=== PATIENT | male | born 1955 ===

== ENCOUNTER 2017-12-09 14:43 | Day surgery (SDC) | payer BC ==
[~2017-12-09] VITALS: Ht 182.9 cm; Wt 100.7 kg
[~2017-12-09 14:43] MED LIST: ASPI325EC PO; ATEN50 PO; FISH OIL 1,0001 EAC1 PO; LISI5 PO; Olux-E 0.05% F100 GM; SIMV40 PO
== END 2017-12-09 16:06 | disposition home or self-care (01) ==
LOC: ORSCSDS 14:43
PROVIDERS: Ophthalmology
PROC: 08RJ3JZ Replacement of Right Lens with Synthetic Substitute, Percutaneous Approach (ICD-10-PCS; principal; 2017-12-09 16:30)
DX: H25.11 Age-related nuclear cataract, right eye (principal); I10 Essential (primary) hypertension; I25.2 Old myocardial infarction; Z79.899 Other long term (current) drug therapy; F17.210 Nicotine dependence, cigarettes, uncomplicated
CPT/HCPCS: J2250; J3010; J7040; V2632